=== PATIENT | female | born 1990 ===

== ENCOUNTER → 2025-03-11 | Outpatient (CLI) | payer OTHER | LOC: LAB SHORT 10:50 → LAB 10:50 | DX: O09.93 Supervision of high risk pregnancy, unspecified, third trimester (principal) | CPT/HCPCS: 87081; 87150 ==

== ENCOUNTER 2025-03-31 07:00 | Inpatient (IN) | payer OTHER ==
[~2025-03-31] VITALS: Ht 152.4 cm; Wt 65.0 kg
[2025-03-31] VITALS (46 sets, daily range): BP systolic 66–117; BP diastolic 36–66
[2025-03-31] MEDS ORDERED: FentaNYL Citrate 50 MCG/ML 2 ML Injection IV PRN (07:10)
[2025-03-31] MEDS ORDERED: Misoprostol 200 MCG Tab PR PRN (07:35)
[2025-03-31] MEDS ORDERED: Carboprost Tromethamine 250 MCG/ML 1ML Amp IM PRN (07:35)
[2025-03-31] MEDS ORDERED: Lactated Ringer's 1,000 ML IV PRN ×3 (07:35)
[2025-03-31] MEDS ORDERED: Misoprostol 200 MCG Tab BC PRN (07:35)
[2025-03-31] MEDS ORDERED: OXYTOCIN/RINGER'S LACTATE 500 ML IV PRN (07:35)
[2025-03-31] MEDS ORDERED: Oxytocin 10 Unit / ML Vial IM PRN (07:35)
[2025-03-31] MEDS ORDERED: Ondansetron HCl 2 MG / ML 2ML Vial IV PRN (07:35)
[2025-03-31] MEDS ORDERED: FentaNYL 2mcg/ml-Bup 0.1% Epd 250 ML EPI PRN (07:35)
[2025-03-31] MEDS ORDERED: Calcium Carbonate 500 MG Tab Chew PO PRN (07:35)
[2025-03-31] MEDS ORDERED: ePHEDrine Sulfate 50 MG/ML 1ML Injection XX PRN (07:35)
[2025-03-31] MEDS ORDERED: Methylergonovine Maleate 0.2MG / ML 1ML Amp IM PRN (07:35)
[2025-03-31] MEDS ORDERED: PRENATAL TABLE1 EAC2 PO (07:38)
[2025-03-31] MEDS ORDERED: DOC250 PO (07:39)
[2025-03-31] MEDS ORDERED: IRON18 M1 PO (07:39)
[2025-03-31] MEDS ORDERED: Lactated Ringer's 1,000 ML IV SCH (07:40)
[2025-03-31] MEDS ORDERED: Acetaminophen 500 MG Tab PO PRN (07:40)
[2025-03-31] MEDS ORDERED: OXYTOCIN/RINGER'S LACTATE 500 ML IV SCH (07:40)
[2025-03-31] MEDS ORDERED: Tranexamic Acid 100 ML IV SCH (07:45)
[2025-03-31 07:55] LABS: BASOPHILS ABSOLUTE AUTO 0.02 K/mm3 (0.00-0.23); BASOPHILS PERCENT AUTO 0 % (0-2); EOSINOPHILS ABSOLUTE AUTO 0.06 K/mm3 (0.00-0.68); EOSINOPHILS PERCENT AUTO 1 % (0-6); Hematocrit 37.6 % (33.0-51.0); Hemoglobin 13.1 g/dL (11.5-16.0); IMMATURE GRAN ABSOLUTE AUTO 0.06 K/mm3 (0.00-0.10); IMMATURE GRAN PERCENT AUTO 1 % (0-1); LYMPHOCYTES ABSOLUTE AUTO 1.55 K/mm3 (0.84-5.20); LYMPHOCYTES PERCENT AUTO 27 % (21-46); MONOCYTES ABSOLUTE AUTO 0.42 K/mm3 (0.16-1.47); MONOCYTES PERCENT AUTO 7 % (4-13); Mean Corpuscular HGB Conc 34.8 g/dL (31.5-36.5); Mean Corpuscular Volume 83 fL (80-100); Mean Platelet Volume 10.8 fL (9.1-12.4); NEUTROPHILS ABSOLUTE AUTO 3.73 K/mm3 (1.96-9.15); NEUTROPHILS PERCENT AUTO 64 % (41-73); Platelet Count 167 K/mm3 (150-400); RDW Coefficient Variation 15.3 % (11.7-14.2); RDW Standard Deviation 46.5 fL (35.1-46.3); Red Blood Cell Count 4.52 M/mm3 (3.80-5.20); White Blood Cell Count 5.84 K/mm3 (4.00-11.30)
[2025-04-01] VITALS (16 sets, daily range): BP systolic 83–105; BP diastolic 50–59
[2025-04-01] MEDS ORDERED: Lanolin Cream TOP PRN (01:05)
[2025-04-01] MEDS ORDERED: Witch Hazel/Glycerin PADS TOP PRN (01:05)
[2025-04-01] MEDS ORDERED: Docusate Sodium 100 MG Cap PO PRN (01:05)
[2025-04-01] MEDS ORDERED: Ketorolac Tromethamine 30mg Vial IV PRN (01:10)
[2025-04-01] MEDS ORDERED: Ibuprofen 400 MG Tab PO PRN (01:10)
[2025-04-01] MEDS ORDERED: Carboprost Tromethamine 250 MCG/ML 1ML Amp IM PRN (01:10)
[2025-04-01] MEDS ORDERED: Misoprostol 200 MCG Tab PR PRN (01:10)
[2025-04-01] MEDS ORDERED: Benzocaine Topical Anesthetic Spray 60GM TOP PRN (01:10)
[2025-04-01] MEDS ORDERED: OXYTOCIN/RINGER'S LACTATE 500 ML IV SCH (01:10)
[2025-04-01] MEDS ORDERED: Acetaminophen 325 MG TABLET PO PRN (01:15)
[2025-04-01] MEDS ORDERED: Methylergonovine Maleate 0.2MG / ML 1ML Amp IM PRN (01:15)
[2025-04-01] MEDS ORDERED: Lactated Ringer's 1,000 ML IV SCH (01:15)
[2025-04-01] MEDS ORDERED: Prenatal Vit/FE Fumarate/FA 1 Tab PO SCH (09:00)
--- NOTE | 2025-04-01 15:36 | NUR ---
PT UTILIZED CALL LIGHT, REPORTS FOUR SMALL SIZED CLOTS THAT WERE FLAT. PT RETURNED TO BED, FUNDAL CHECK PERFORMED. FUNDUS APPEARS OFF TO THE RIGHT AT THIS TIME, PT REPORTS SHE RECENTLY EMPTIED HER BLADDER PRIOR TO THIS RN'S ARRIVAL TO HER ROOM. PT INSTRUCTED TO NOTIFY THIS RN IF SHE HAS CONTINUED CLOTS THAT ARE LARGE IN SIZE. PT VERBALIZED UNDERSTANDING.
[2025-04-01] MEDS ORDERED: IBUP800 PO (20:33)
== END 2025-04-01 23:56 | disposition home or self-care (01) | DRG 807 ==
LOC: OBS 07:00 → BC 07:02 → OBS 07:11 → BC 19:48
PROVIDERS: ADMIT Obstetrics & Gynecology
PROC: 10E0XZZ Delivery of Products of Conception, External Approach (ICD-10-PCS; principal; 2025-04-01)
PROC: 10907ZC Drainage of Amniotic Fluid, Therapeutic from Products of Conception, Via Natural or Artificial Opening (ICD-10-PCS; 2025-04-01)
PROC: 00HU33Z Insertion of Infusion Device into Spinal Canal, Percutaneous Approach (ICD-10-PCS; 2025-04-01)
PROC: 3E0R3BZ Introduction of Anesthetic Agent into Spinal Canal, Percutaneous Approach (ICD-10-PCS; 2025-04-01)
DX: O99.814 Abnormal glucose complicating childbirth (principal); Z37.0 Single live birth; Z3A.39 39 weeks gestation of pregnancy; Z79.899 Other long term (current) drug therapy
CPT/HCPCS: 36415; 36416; 51702; 82947; 85025; 86850; 86900; 86901; A9270; J1885; J2590; J7120